=== PATIENT | female | born 2000 | race Hispanic/Latino ===

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

== ENCOUNTER 2022-03-16 19:29 | Emergency (ER) | payer SELFPAY ==
[~2022-03-16] VITALS: Ht 165.1 cm; Wt 58.1 kg
[2022-03-16 20:07] LABS: COLOR,URINE YELLOW (YELLOW)
[2022-03-16 20:08] LABS: CLARITY,URINE CLEAR (CLEAR); LEUKOCYTE ESTERASE ,URINE TRACE (NEGATIVE); NITRITE,URINE NEGATIVE (NEGATIVE); PROTEIN,URINE DIPSTICK NEGATIVE (NEGATIVE)
[2022-03-16 20:09] LABS: KETONES,URINE NEGATIVE (NEGATIVE); URINE UROBILINOGEN 0.2 mg/dL (0.2 - 1)
[2022-03-16 20:17] LABS: BACTERIA,URINE RARE /HPF; EPITHELIAL CELLS,URINE FEW /LPF; RBC,URINE 0-5 /HPF (0-5)
[2022-03-16] MEDS ORDERED: LIDOCAINE HCL 2% 2 ML AMP INJ ONE (20:30)
[2022-03-16] MEDS ORDERED: CEFTRIAXONE 1 GM VIAL IM ONE (20:30)
[2022-03-16] MEDS ORDERED: CEPHALEXIN500 MG PO (20:48)
[2022-03-16 20:58] VITALS: BP 112/78
== END 2022-03-16 21:10 | disposition home or self-care (01) ==
LOC: ER 19:39
DX: R30.0 Dysuria (principal); N39.0 Urinary tract infection, site not specified; R31.9 Hematuria, unspecified; R10.31 Right lower quadrant pain; Z20.822 Contact with and (suspected) exposure to COVID-19
CPT/HCPCS: 81001; 81025; 87400; 99283; J0696; J2001; U0002

== ENCOUNTER 2022-10-01 16:53 | Emergency (ER) | payer SELFPAY ==
[~2022-10-01] VITALS: Ht 157.5 cm; Wt 54.4 kg
[~2022-10-01 16:53] MED LIST: CEPHALEXIN500 MG PO
[2022-10-01 18:10] LABS: BASOPHILS # (AUTO) 0.1 (0.0-0.1); BASOPHILS % 0.5 % (0.0-1.0); EOSINOPHILS % 0.4 % (0.0-6.0); HEMATOCRIT 33.5 % (34.2-44.1); HEMOGLOBIN 10.2 g/dL (12.0-16.0); LYMPHOCYTES # (AUTO) 3.8 (1.0-3.2); LYMPHOCYTES % 35.9 % (18.0-39.1); MEAN CORPUSCULAR HEMOGLOBIN 23.1 pg (28-32); MEAN CORPUSCULAR HGB CONC 30.4 g/dL (31-35); MEAN CORPUSCULAR VOLUME 75.8 fL (81-99); MONOCYTES # (AUTO) 0.6 (0.2-0.8); MONOCYTES % 5.5 % (4.4-11.3); NEUTROPHILS # (AUTO) 6.1 (2.1-6.9); NEUTROPHILS % 57.4 % (38.7-80.0); PLATELET COUNT 435 x10e3/uL (140-360); RED BLOOD COUNT 4.42 x10e6/uL (3.6-5.1)
[2022-10-01] MEDS ORDERED: ONDANSETRON HCL INJ 2MG/ML 2ML 2 MG/ML VIAL IV STA (18:20)
[2022-10-01] MEDS ORDERED: KETOROLAC TROMETHAMINE 30 MG/ML VIAL IV STA (18:25)
[2022-10-01 18:29] LABS: ALBUMIN 4.3 g/dL (3.5-5.0); ANION GAP 14.6 mmol/L (8-16); CALCIUM 9.1 mg/dL (8.4-10.2); CREATININE, SERUM 0.83 mg/dL (0.57-1.11); POTASSIUM 3.6 mmol/L (3.5-5.1)
[2022-10-01] MEDS ORDERED: SODIUM CHLORIDE 0.9% 1000ML 1,000 ML IV ONE (18:30)
[2022-10-01 18:51] LABS: CLARITY,URINE CLOUDY (CLEAR); COLOR,URINE YELLOW (YELLOW); KETONES,URINE TRACE (NEGATIVE); LEUKOCYTE ESTERASE ,URINE TRACE (NEGATIVE); NITRITE,URINE NEGATIVE (NEGATIVE); PROTEIN,URINE DIPSTICK 1+ (NEGATIVE); URINE UROBILINOGEN 0.2 mg/dL (0.2 - 1)
[2022-10-01 19:09] LABS: BACTERIA,URINE FEW /HPF; EPITHELIAL CELLS,URINE MODERATE /LPF; MUCUS,URINE FEW (RARE); RBC,URINE 0-5 /HPF (0-5); WBC,URINE (MAN) 21-50 /HPF (0-5)
[2022-10-01] MEDS ORDERED: IOPAMIDOL 370 MG/ML 100 ML INFUS..BTL INJ ONE (19:37)
[2022-10-01] MEDS ORDERED: DICYCLOMINE HCL20 MG PO (20:29)
[2022-10-01] MEDS ORDERED: CEFDINIR300 MG PO (20:29)
[2022-10-01] MEDS ORDERED: METRONIDAZOLE500 MG PO (20:29)
[2022-10-01] MEDS ORDERED: ONDANSETRON ODT4 MG PO (20:29)
[2022-10-01 20:46] VITALS: BP 100/59; PULSE 75; RESP 16; TEMP 98.3; O2SAT 100
== END 2022-10-01 20:45 | disposition home or self-care (01) ==
LOC: ER 17:59
DX: R10.11 Right upper quadrant pain (principal); K52.9 Noninfective gastroenteritis and colitis, unspecified; N39.0 Urinary tract infection, site not specified; R11.2 Nausea with vomiting, unspecified
CPT/HCPCS: 36415; 74177; 76705; 80053; 81001; 84702; 85025; 99284; C9113; J1885; J2405; J7030; Q9967